=== PATIENT | male | born 1960 | race Caucasian/White ===

== ENCOUNTER 2022-03-09 11:32 | Outpatient (CLI) | payer OTHER, SELFPAY ==
[2022-03-09 21:41] LABS: Albumin* 4.5 g/dL (3.3-5.0)
[2022-03-09 21:42] LABS: Chloride* 101 mmol/L (96-114); Creatinine Urine 208.6 mg/dL; Microalbumin Creatinine Ratio 0 mg/g (0-30); Microalbumin Urine 1 mg/dL; Potassium* 4.5 mmol/L (3.6-5.1); Sodium* 139 mmol/L (135-149)
[2022-03-09 21:44] LABS: Aspartate Amino Transferase* 34 U/L (12-35); Blood Urea Nitrogen* 17 mg/dL (7-30); Carbon Dioxide* 31 mmol/L (20-32); Cholesterol* 171 mg/dL (90-199); Estimated Glomerular Filt Rate 85 ml/min; Glucose* 77 mg/dL (60-115); Total Protein* 6.9 g/dL (6.0-8.3)
[2022-03-09 21:45] LABS: Alanine Aminotransferase* 23 U/L (4-50); Alkaline Phosphatase* 52 U/L (40-150); Calcium* 9.3 mg/dL (8.4-10.6); HDL Cholesterol* 46 mg/dL (>=40); LDL Cholesterol Calculated 102 mg/dL (<100); Triglycerides* 113 mg/dL (40-149)
[2022-03-09 23:27] LABS: Free T4 Free Thyroxine* 1.36 ng/dL (0.70-1.85)
== END 2022-03-09 11:33 | disposition home or self-care (01) ==
PROVIDERS: PCP Family Medicine; Visit Provider Family Medicine
DX: E03.9 Hypothyroidism, unspecified (principal); E78.5 Hyperlipidemia, unspecified; R53.83 Other fatigue
CPT/HCPCS: 80053; 80061; 82043; 82570; 84439; 84443

== ENCOUNTER 2022-07-15 14:45 | Outpatient (CLI) | payer OTHER, SELFPAY ==
--- OUTSIDE RECORDS SUMMARY | 2022-07-16 01:55 | XMS_ITS | Continuity of Care Document ---
:1960 Author Organization [employer] Care Team Providers Name Role Phone [facility] Unavailable Unavailable Problems Problem Status Onset Date Classification Date Comments Sour ce Reported Bleeding from 03/27/2022 Arizo na nose (finding) [facility] Not up-to-date 03/27/2022 Ariz stormy with immunization Ge neral (finding) [facility] Vaccination not 03/27/2022 Dominguez ren done [facility] Medications Medication Details Route Status Patient Ordering Order Source Instructions Provider Date acetaminophen-hy Refills: 0, Active [facility] drocodone 325 Maintenance 022 Genera l mg-5 mg oral [facility] atorvastatin 20 Refills: 0, Active [place] stormy mg oral tablet Maintenance 022 Gener [facility] levothyroxine Refills: 0, Active Arizon a 137 mcg (0.137 Maintenance 022 Gener al mg) oral [facility] zolpidem 10 mg Refills: 0, Active Arizo na oral tablet Maintenance 022 [facility] Allergies, Adverse Reactions, Alerts Substance Category Reaction Severity Reaction Status Date Comments S ource type Reported No Known Drug Active [place] Medication Gener al Allergies [facility],Dominguez z stormy [facility] Consultation Notes Results Value Date Source Discharge Instructions [facility] 03/19/2022 [place] [facility] Document [address] [place] [address] [place] ISAIAH INIGUEZ :1960 (AG) Visit Date:03/19/2022 SAFE PAIN MEDICINE PRESCRIBING We care about you. Our goal is to treat your medical conditions, including pain, effectively, safely and in the right way. Pain relief treatment can be complicated. Mistakes or abuse of pain medicine can cause serious health problems and . Our emergency department patrick l only provide pain relief options that are safe and correct. For your SAFETY, we routinel y follow these rules when helping you with your pain. We look for and treat emerg encies. We use our best judgement when treating pain. These recommendations follow legal and ethical advice. You should have only ONE pr ovider and ONE pharmacy helping you with pain. We do not usually prescribe pain medication if you already receive pain medicine from another health care provider. If pain prescriptions are n eeded for pain, we will only give you a limited amount. We do not refill stolen or lost prescriptions f or pain medication. We do not prescribe long-ac ting pain medicines such as: OxyContin, MSContin, Fentanyl (Duragesic), Methadone, Opana ER, Exalgo, and others. We do not provide missed doses of Methadone. We do not usually give shots for flare-ups of c hronic pain. Health care laws, including HIPAA, allow us to ask for all of your medical records. These laws allow us to share information with other health providers who are treating you. We may ask you to show a laith ID when you receive a prescription for pain medicines. In [place], we use the [facility] Prescription Drug Monitoring Program called [employer] In [place] and [place], we use the Prescription Monitoring Program that has oversight by the [place] and [facility] boards of pharmacy. [employer] [facility] computer systems track opioid pain medications and other controlled substance prescriptions. If you need help with substa nce abuse or addiction, please call [phone] ([phone] for confidential referral and treatment. Sponsored by: [employer] [facility] [place] [facility] Safe Practice, Safe Care [facility] Emergency Department Patient Discharge Instruct ions If your symptoms continue o r worsen, return to the emergency department or contact your physician. If you have questions about your discharge instructions, call the phone number above. Providers Attending Physician - Paramjit Abreu DO Provider Role Jonny Bajwa PAC ED Provider Reason for Visit Nose bleed Discharge Diagnosis Epistaxis, recurrent Discharge Vitals T: 36.5 ?C (Temporal Artery) HR: 81 RR: 16 BP: 145/76 SpO2: 97% Oxygen Method: Room air HT: 177.8 cm WT: 195 lbs WT: 88.435 kg BMI: 27.97 BSA: 2.09 These instructions are inte nded to provide general information and guidelines to follow at home to properly care for your particular medical problem. The following diagnostic tests and/or procedures were performed during your stay. Tests Performed Most Recent Lab Results Follow-up Instructions: All referrals for follow up medical care may require approval by your insurance carrier. Any provider contact information (below) is provided to assist you in getting the follow up we recommend. Moses saucedo, it's important that you f irst check with your insurance provider to assure that the provider is in yourinsurance provider to assure that the provider is in your network and such a visit will be covered. Some plans may require a Primary Care doctor to provide a referral for specialist appointments. You May Need to Schedule the Following Appointme nts Follow Up with Follow up with primary care prov ider When Within 1 to 3 days We encourage you to sign up for My Portal, where you can easily access your medical records and test results from all [facility]. Please sign up in one of the following ways: 1. Email invitation. You ma y have a message in your inbox. Please click the link provided to create an account. OR 2. Request an invitation at your next clinic or hospital visit. Please ask a staff member and they will be happy to assist you. Medications What When Instructions Next Dose Unchanged acetaminophen-HYD ROcodone (acetaminophen-hydrocodone 325 mg-5 mg oral tablet) Unchanged atorvastatin (atorvastatin 20 mg oral tablet) Unchanged levothyroxine (levothyroxine 137 mcg (0.137 mg) oral tablet) Unchanged zolpidem (zolpidem 10 mg oral tablet) Discharge Orders Discharge Orders: Discharge Now, Home or self care Education Materials Nosebleed, Adult A nosebleed is when blood c omes out of the nose. Nosebleeds are common. Usually, they are not a sign of a serious condition. Nosebleeds can happen if a blood vessel in your nose starts to bleed or if the lining of your nose (mucous membrane) cracks. They are commonly caused by: ? Allergies. ? Colds. ? Picking your nose. ? Blowing your nose too hard. ? An injury from sticking an object into your nos e or getting hit in the nose. ? Dry or cold air. Less common causes of nosebleeds include: ? Toxic fumes. ? Something abnormal in the n ose or in the air-filled spaces in the bones of the face (sinuses). ? Growths in the nose, such as polyps. ? Blood thinners or conditions that cause blood t o clot slowly. ? Certain illnesses or procedures that irritate o r dry out the nasal passages. Follow these instructions at home: When you have a nosebleed: ? Sit down and tilt your head slightly forward. ? Use a clean towel or tissue to pinch your nostrils under the bony part of your nose. After 5 minutes, let go of your nose and see if bleeding starts again. Do not release pressure before that time. If there is still bleeding, rep eat the pinching and holding for 5 minutes or until the bleeding stops. ? Do not place tissues or gauze in the nose to st op the bleeding. ? Avoid lying down and avoid tilting your head backward. That may make blood collect in the throat and cause gagging or coughing. ? Use a nasal spray decongest ant to help with a nosebleed as told by your health care provider. After a nosebleed: ? Avoid blowing your nose or sniffing for a numbe r of hours. ? Avoid straining, lifting, o r bending at the waist for several days. You may go back to other normal activities as you are able. ? If you are taking aspirin o r blood thinners and you have nosebleeds, talk to your health care provider. These medicines make bleeding more likely. Ask your health care provid er if you should stop taking the medicines or if you should adjust the dose. Do not stop taking medicine s that your health care provider has recommended unless he or she tells you to stop taking them. ? If your nosebleed was cause d by dry mucous membranes, use [id number] saline nasal spray or gel and a humidifier as told by your health care provider. This will keep the mucous membranes moist and allow them to heal. If you need to use one of t hese products: Choose one that is water-soluble. Use only as much as you need and use it only as often as needed. Do not lie down right after you use it. ? If you get nosebleeds often , talk with your health care provider about medical treatments. Options may include: Nasal cautery. This treatme nt stops and prevents nosebleeds by using a chemical swab or electrical device to lightly burn tiny blood vessels inside the nose. Nasal packing. A gauze or o ther material is placed in the nose to keep constant pressure on the bleeding area. Contact a health care provider if you: ? Have a fever. ? Get nosebleeds often or more often than usual. ? Bruise very easily. ? Have a nosebleed from having something stuck in your nose. ? Have bleeding in your mouth. ? Vomit or cough up brown material. ? Have a nosebleed after you start a new medicine . Get help right away if: ? You have a nosebleed after a fall or a head inj ury. ? Your nosebleed does not go away after 20 minute s. ? You feel dizzy or weak. ? You have unusual bleeding from other parts of y our body. ? You have unusual bruising on other parts of you r body. ? You become sweaty. ? You vomit blood. Summary ? A nosebleed is when blood c omes out of the nose. Common causes include allergies, an injury to the nose, or cold or dry air. ? Initial treatment includes applying pressure fo r 5 minutes. ? Moisturizing the nose with saline nasal spray or gel after a nosebleed may help prevent future bleeding. ? Get help right away if your nosebleed does not go away after 20 minutes. This information is not int ended to replace advice given to you by your health care provider. Make sure you discuss any questions you have with your health care provider. Document Revised: 0 Document Reviewed: 02/14/2020 [employer] Patient Education ? 2021 [employer]. I understand that [facility] is not responsible for any personal belongings/effects or valuables that have not been identified on the valuables and belongings list. Any personal effects brought int o the facility and not recor ded on the valuables and belongings form are the responsibility of the patient/family/significant other. I have received the indicated patient education materials/instruction s and medication list and have verbalized unders tanding. Patient Name: ISAIAH INIGUEZ Patient/Responsible Adult S ignature: Date/Time: Provider Signature: Date/Time: ED Physician Notes 03/19/2022 Mary Lou paez Patient: ISAIAH INIGUEZ () [facility] Age: 61 years Sex: F : 1960 [place] Associated Diagnoses: None Author: Jonny Bajwa Basic Information Time seen: Provider Initial Contact Time 03/19/2022 14:02. History source: Patient. Arrival mode: Private vehicle. History limitation: None. Additional information: Chief Complaint (ST) Chief Complaint ED: nose bleed since this anel wild 03/19/22 14:05, Subjective Nursing Assessment: bilateral nose b leed 03/19/22 14:05 . History of Present Illness Patient presents for noseble ed that is been present throughout the day. Patient went to primary care provider earlier today where cautery was done. Upon arrival patient's states that blood is n ow slightly trickling out bu t he does not have any packing in the nose and is not having to hold pressure. Is not on any anticoagulants, does have a history of epistaxis that occurs around this time saúl ry year. Has had to have cautery done numerous t imes. Review of Systems Constitutional symptoms: Negative except as docu mented in HPI. Skin symptoms: Negative except as documented in HPI. Eye symptoms: Negative except as documented in H PI. ENMT symptoms: Nose: Bleeding. Respiratory symptoms: Negative except as documen maria del carmen in HPI. Cardiovascular symptoms: Negative except as docu mented in HPI. Gastrointestinal symptoms: Negative except as do cumented in HPI. Genitourinary symptoms: Negative except as docum ented in HPI. Musculoskeletal symptoms: Negative except as doc umented in HPI. Neurologic symptoms: Negative except as document ed in HPI. Additional review of system s information: All other systems reviewed and otherwise negative. Health Status Allergies: Allergic Reactions (All) No Known Medication Allergies. Medications: Include Documented Meds (Selected) Documented Medications Documented acetaminophen-hydrocodone 325 mg-5 mg oral table t: 0 Refill(s) atorvastatin 20 mg oral tablet: 0 Refill(s) levothyroxine 137 mcg (0.137 mg) oral tablet: 0 Refill(s) zolpidem 10 mg oral tablet: 0 Refill(s). Past Medical/ Family/ Social History Surgical history: No active procedure history items have been jonathan cted or recorded.. Family history: No family history items have been selected or re corded.. Social history: Social and Psychosocial Habits Alcohol 03/19/2022 Use: Current Frequency: 1-2 times per month Home/Environment 03/19/2022 Hinduism restrictions/concerns: None Living situation: Home/Independent Substance Abuse 03/19/2022 Use: Denies Tobacco 03/19/2022 Tobacco Use: Never (less than 100 in l . Physical Examination Vital Signs Vital-Signs 03/19/2022 14:05 MST Oxygen Method Room air SPO2 97 % Normal Heart Rate 81 bpm Normal NIBP Systolic 145 mm Hg H NIBP Diastolic 76 mm Hg Normal Resp Rate (Monitor) 16 Breaths/Min Normal Temperature Temporal Artery 36.5 deg C Normal Pain Intensity 0 Pain Scale Used Numeric Rating Scale . Measurements 03/19/2022 14:05 MST BSA-pt care 2.09 Duncan Body Weight 68.5 kg Weight Method Stated Drug Calc Weight (kg) 88.435 kg BMI 27.97 kg/m2 Height 177.8 cm Height In 70 Inch Weight lb 195 lbs . SPO2 03/19/2022 14:05 MST SPO2 97 % Normal . General: Alert, no acute distress. Skin: Warm, pink, intact, moist, no pallor, no r mariya. Head: Normocephalic, atraumatic. Eye: Extraocular movements are intact, normal co njunctiva, vision unchanged. Ears, nose, mouth and throat : Oral mucosa moist, no pharyngeal erythema or exudate, Nose: Bilateral nares observed with blood clots and no active bleeding. No tenderness surrounding the nose or sinuses. Cardiovascular: Normal peripheral perfusion, No edema. Respiratory: Respirations are non-labored, Symme trical chest wall expansion. Back: Nontender, Normal range of motion. Musculoskeletal: Normal ROM, normal strength, no swelling. Chest wall Gastrointestinal: Soft, Nont deb, Non distended, Normal bowel sounds, No organomegaly. Neurological: Alert and orie nted to person, place, time, and situation, No focal neurological deficit observed, normal motor observed, normal speech observed, normal coordination observed. Lymphatics Psychiatric: Cooperative, appropriate mood and a ffect, normal judgment. Medical Decision Making Differential Diagnosis: Anterior epistaxis. Notes: Discussed numerous op tion with patient on how to proceed as he had mild drooping of bilateral naris upon arrival. After discussion we decided that it would be appropriate for him to blow his nose and clear the clots which s he did, immediately causing moderate bleeding from bilateral nares. Nasal packing was placed with Afrin bilaterally, strings were taped to both cheeks. Patient is not on bloo d thinners at this time, obs erved for 10 minutes after packing with no additional bleeding. Informed patient that he can remove the packing this evening or in the morning, but to not let it sit for long er than 24 hours. We discuss ed what to do should he continue bleeding which is internal packing and to use Afrin 1 more time. Minimal blood loss at this time, do not see need for doing blood work to check for anemia.. Impression and Plan Epistaxis, recurrent ([id number] R04.0, Discharge, Medical) Plan Condition: Improved, Stable. Disposition: Medically cleared, Discharg ed: Time 03/19/2022 15:05:00, to home. Follow up with: Primary Care Physician, In: as jenaro rivas. Counseled: Patient, Ursula wild diagnosis, Regarding diagnostic results, Regarding treatment plan, Patient indicated understanding of instructions. Electronically Signed By: Jonny Bajwa PAC On 03/19/22 15:05 Co Signature By: Paramjit Abreu DO On 11/22/22 23:47 Modify Signature By: ED Procedure and Supply ED Procedure and Supply Caitlyn ges Entered On: 03/24/2022 11:00 PST 03/19/2022 [facility] Charges - Text Performed On: 03/19/2022 13:25 [facility] - Charges Other ED Procedures v2 : CAUTERY PROCEDURE/CONTR OL BLEED Crystal Mckeon - 03/24/2022 10:59 PST Vital Signs Vital Sign Value Date Comments Source Temperature Rectal 36.7 03/19/2022 [facility] Systolic (mm Hg) 135 03/19/2022 [facility] Diastolic (mm Hg) 65 03/19/2022 [facility] Respiratory Rate 18 Breaths/Min 03/19/2022 [facility] SPO2 99 03/19/2022 [facility] Heart Rate (bpm) 78 03/19/2022 [facility] Height (cm) 177.8 03/19/2022 [facility] Drug Calc Weight (kg) 88.435 03/19/2022 [facility] BMI 27.97 03/19/2022 [facility] Temperature (c) 36.5 03/19/2022 [facility] Systolic (mm Hg) 145 03/19/2022 [facility] Diastolic (mm Hg) 76 03/19/2022 [facility] Heart Rate (bpm) 81 03/19/2022 [facility] Respiratory Rate 16 Breaths/Min 03/19/2022 [facility] SPO2 97 03/19/2022 [facility] Encounters Location Location Encounter Encounter Reason Attending ADM DC Stat us Source Details Type Number For Provider Date Date Visit [facility] [id number] Paramjit 03/19 03/19 A oliverio Perezack /2021 [facility] Procedures Procedure Code Date Perfomer Comments Source CONTROL OF NOSEBLEED 68512 03/19/2022 [facility] NON-COVERED ITEM OR SERV [id number] 03/19/2022 [facility] Social History Social History Date Source Social History TypeResponse 03/19/2022 [facility] Smoking Status Never (less than 100 in lifetime) entered on: 03/19/22 Sex Male Assessment and Plan Result Assessment and Plan Date Source Assessment and Plan No data available for this 03/19/2022 [facility]
== END 2022-07-15 14:46 | disposition home or self-care (01) ==
LOC: NFLDREF 07-16 01:53
PROVIDERS: PCP Family Medicine; Referring Provider Family Medicine; Visit Provider Family Medicine
DX: E03.9 Hypothyroidism, unspecified (principal); R53.83 Other fatigue
CPT/HCPCS: 84439; 84443

== ENCOUNTER 2022-11-03 14:11 | Outpatient (CLI) | payer OTHER, SELFPAY ==
--- OUTSIDE RECORDS SUMMARY | 2022-11-03 14:13 | XMS_ITS | Continuity of Care Document ---
Author Name [employer] Care Team Providers Care Stockroom Inventory Clerk Name Role Phone [employer] Unavailable Unavailable Problems Problem Status Onset Date Classification Date Reported Comments Source Bleeding from nose (finding) 03/27/2022 [facility] Not up-to-date with immunization (finding) 03/27/2022 [facility] Vaccination not done 03/27/2022 [facility] Medications Medication Details Route Status Patient Instructions Ordering Provider Order Date Source acetaminophen-hy drocodone 325 mg-5 mg oral tablet Refills: 0, Maintenance Active [facility] atorvastatin 20 mg oral tablet Refills: 0, Maintenance Active [facility] levothyroxine 137 mcg (0.137 mg) oral tablet Refills: 0, Maintenance Active [facility] zolpidem 10 mg oral tablet Refills: 0, Maintenance Active [facility] Allergies, Adverse Reactions, Alerts Substance Category Reaction Severity Reaction type Status Date Reported Comments Source No Known Medication Allergies Drug Active [facility] Consultation Notes Results Value Date Source Discharge Instructions Document [facility] [address], [place] [id number] ISAIAH INIGUEZ :1960 () Visit Date:03/19/2022 [facility]IC[employer] PRESCRIBING We care about you. Our goal is to treat your medical conditions, including pain, effectively, safely and in the right way. Pain relief treatment can be complicated. Mistakes or abuse of pain medicine can cause serious health problems and . Our emergency department will only provide pain relief options that are safe and correct. For your SAFETY, we routinely follow these rules when helping you with your pain. We look for and treat emergencies. We use our best judgement when treating pain. These recommendations follow legal and ethical advice. You should have only ONE provider and ONE pharmacy helping you with pain. We do not usually prescribe pain medication if you already receive pain medicine from another health care provider. If pain prescriptions are needed for pain, we will only give you a limited amount. We do not refill stolen or lost prescriptions for pain medication. We do not prescribe long-acting pain medicines such as: OxyContin, MSContin, Fentanyl (Duragesic), Methadone, Opana ER, Exalgo, and others. We do not provide missed doses of Methadone. We do not usually give shots for flare-ups of chronic pain. Health care laws, including HIPAA, allow us to ask for all of your medical records. These laws allow us to share information with other health providers who are treating you. We may ask you to show a photo ID when you receive a prescription for pain medicines. In [place], we use the [place] Prescription Drug Monitoring Program called [employer]. In [place] and [place], we use the Prescription Monitoring Program that has oversight by the [place] and [facility] boards of pharmacy. These statewide computer systems track opioid pain medications and other controlled substance prescriptions. If you need help with substance abuse or addiction, please call [phone] ([phone]) for confidential referral and treatment. Sponsored by: [employer] [facility] MANAGER [place] [employer] [facility] [employer] Safe Practice, Safe Care [facility] Emergency Department Patient Discharge Instructions If your symptoms continue or worsen, return to the emergency department or [...] BMI: 27.97 BSA: 2.09 These instructions are intended to provide general information and guidelines to [...] in getting the follow up we recommend. However, it's important that you first check with your insurance provider to assure that the provider is in yourinsurance provider to assure that the provider is in your network and such a visit will be covered. Some plans may require a Primary Care doctor to provide a referral for specialist appointments. You May Need to Schedule the Following Appointments Follow Up with Follow up with primary care provider When Within 1 to 3 days We encourage you to sign up for My Portal, where you can easily access your medical records and test results from all [facility]. Please sign up in one of the following ways: 1. Email invitation. You may have a message in your inbox. Please click the link provided to create an account. OR 2. Request an invitation at your next clinic or hospital visit. Please ask a staff member and they will be happy to assist you. Medications What When Instructions Next Dose Unchanged acetaminophen-HYDROcodone (acetaminophen-hydrocodone 325 mg-5 mg oral tablet) Unchanged atorvastatin (atorvastatin 20 mg oral tablet) Unchanged levothyroxine (levothyroxine 137 mcg (0.137 mg) oral tablet) Unchanged zolpidem (zolpidem 10 mg oral tablet) Discharge Orders Discharge Orders: Discharge Now, Home or self care Education Materials Nosebleed, Adult A nosebleed is when blood comes out of the nose. Nosebleeds are common. Usually, they are not a sign of a serious condition. Nosebleeds can happen if a blood vessel in your nose starts to bleed or if the lining of your nose (mucous membrane) cracks. They are commonly caused by: Allergies. Colds. Picking your nose. Blowing your nose too hard. An injury from sticking an object into your nose or getting hit in the nose. Dry or cold air. Less common causes of nosebleeds include: Toxic fumes. Something abnormal in the nose or in the air-filled spaces in the bones of the face (sinuses). Growths in the nose, such as polyps. Blood thinners or conditions that cause blood to clot slowly. Certain illnesses or procedures that irritate or dry out the nasal passages. Follow these instructions at home: When you have a nosebleed: Sit down and tilt your head slightly forward. Use a clean towel or tissue to pinch your nostrils under the bony part of your nose. After 5 minutes, let go of your nose and see if bleeding starts again. Do not release pressure before that time. If there is still bleeding, repeat the pinching and holding for 5 minutes or until the bleeding stops. Do not place tissues or gauze in the nose to stop the bleeding. Avoid lying down and avoid tilting your head backward. That may make blood collect in the throat and cause gagging or coughing. Use a nasal spray decongestant to help with a nosebleed as told by your health care provider. After a nosebleed: Avoid blowing your nose or sniffing for a number of hours. Avoid straining, lifting, or bending at the waist for several days. You may go back to other normal activities as you are able. If you are taking aspirin or blood thinners and you have nosebleeds, talk to your health care provider. These medicines make bleeding more likely. Ask your health care provider if you should stop taking the medicines or if you should adjust the dose. Do not stop taking medicines that your health care provider has recommended unless he or she tells you to stop taking them. If your nosebleed was caused by dry mucous membranes, use [id number] saline nasal spray or gel and a humidifier as told by your health care provider. This will keep the mucous membranes moist and allow them to heal. If you need to use one of these products: Choose one that is water-soluble. Use only as much as you need and use it only as often as needed. Do not lie down right after you use it. If you get nosebleeds often, talk with your health care provider about medical treatments. Options may include: Nasal cautery. This treatment stops and prevents nosebleeds by using a chemical swab or electrical device to lightly burn tiny blood vessels inside the nose. Nasal packing. A gauze or other material is placed in the nose to keep constant pressure on the bleeding area. Contact a health care provider if you: Have a fever. Get nosebleeds often or more often than usual. Bruise very easily. Have a nosebleed from having something stuck in your nose. Have bleeding in your mouth. Vomit or cough up brown material. Have a nosebleed after you start a new medicine. Get help right away if: You have a nosebleed after a fall or a head injury. Your nosebleed does not go away after 20 minutes. You feel dizzy or weak. You have unusual bleeding from other parts of your body. You have unusual bruising on other parts of your body. You become sweaty. You vomit blood. Summary A nosebleed is when blood comes out of the nose. Common causes include allergies, an injury to the nose, or cold or dry air. Initial treatment includes applying pressure for 5 minutes. Moisturizing the nose with saline nasal spray or gel after a nosebleed may help prevent future bleeding. Get help right away if your nosebleed does not go away after 20 minutes. This information is not intended to replace advice given to you by your health care provider. Make sure you discuss any questions you have with your health care provider. Document Revised: 02/14/2020 Document Reviewed: 02/14/2020 [employer] Patient Education ? 2021 [employer] I understand that [facility] is not responsible for any personal belongings/effects or valuables that have not been identified on the valuables and belongings list. Any personal effects brought into the facility and not recorded on the valuables and belongings form are the responsibility of the patient/family/significant other. I have received the indicated patient education materials/instructions and medication list and have verbalized understanding. Patient Name: ISAIAH INIGUEZ Patient/Responsible Adult Signature: Date/Time: Provider Signature: Date/Time: 03/19/2022 [facility] ED Physician Notes Patient: ISAIAH INIGUEZ (DAVID) Age: 61 years Sex: F : 1960 Associated Diagnoses: None Author: Jonny Bajwa PAC Basic Information Time seen: Provider Initial Contact Time 03/19/2022 14:02. History source: Patient. Arrival mode: Private vehicle. History limitation: None. Additional information: Chief Complaint (ST) Chief Complaint ED: nose bleed since this morning 03/19/22 14:05, Subjective Nursing Assessment: bilateral nose bleed 03/19/22 14:05 . History of Present Illness Patient presents for nosebleed that is been present throughout the day. Patient went to primary care provider earlier today where cautery was done. Upon arrival patient's states that blood is now slightly trickling out but he does not have any packing in the nose and is not having to hold pressure. Is not on any anticoagulants, does have a history of epistaxis that occurs around this time every year. Has had to have cautery done numerous times. Review of Systems Constitutional symptoms: Negative except as documented in HPI. Skin symptoms: Negative except as documented in HPI. Eye symptoms: Negative except as documented in HPI. ENMT symptoms: Nose: Bleeding. Respiratory symptoms: Negative except as documented in HPI. Cardiovascular symptoms: Negative except as documented in HPI. Gastrointestinal symptoms: Negative except as documented in HPI. Genitourinary symptoms: Negative except as documented in HPI. Musculoskeletal symptoms: Negative except as documented in HPI. Neurologic symptoms: Negative except as documented in HPI. Additional review of systems information: All other systems reviewed and otherwise negative. Health Status Allergies: Allergic Reactions (All) No Known Medication Allergies. Medications: Include Documented Meds (Selected) Documented Medications Documented acetaminophen-hydrocodone 325 mg-5 mg oral tablet: 0 Refill(s) atorvastatin 20 mg oral tablet: 0 Refill(s) levothyroxine 137 mcg (0.137 mg) oral tablet: 0 Refill(s) zolpidem 10 mg oral tablet: 0 Refill(s). Past Medical/ Family/ Social History Surgical history: No active procedure history items have been selected or recorded.. Family history: No family history items have been selected or recorded.. Social history: Social and Psychosocial Habits Alcohol 03/19/2022 Use: Current Frequency: 1-2 times per month Home/Environment 03/19/2022 Gnosticism restrictions/concerns: None Living situation: Home/Independent Substance Abuse [...] Measurements 03/19/2022 14:05 MST BSA-pt care 2.09 [place] Body Weight 68.5 kg Weight Method Stated Drug Calc Weight (kg) 88.435 kg BMI 27.97 kg/m2 Height 177.8 cm Height In 70 Inch Weight lb 195 lbs . SPO2 03/19/2022 14:05 MST SPO2 97 % Normal . General: Alert, no acute distress. Skin: Warm, pink, intact, moist, no pallor, no rash. Head: Normocephalic, atraumatic. Eye: Extraocular movements are intact, normal conjunctiva, vision unchanged. Ears, nose, mouth and throat: Oral mucosa moist, no pharyngeal erythema or exudate, Nose: Bilateral nares observed with blood clots and no active bleeding. No tenderness surrounding the nose or sinuses. Cardiovascular: Normal peripheral perfusion, No edema. Respiratory: Respirations are non-labored, Symmetrical chest wall expansion. Back: Nontender, Normal range of motion. Musculoskeletal: Normal ROM, normal strength, no swelling. Chest wall Gastrointestinal: Soft, Nontender, Non distended, Normal bowel sounds, No organomegaly. Neurological: Alert and oriented to person, place, time, and situation, No focal neurological deficit observed, normal motor observed, normal speech observed, normal coordination observed. Lymphatics Psychiatric: Cooperative, appropriate mood and affect, normal judgment. Medical Decision Making Differential Diagnosis: Anterior epistaxis. Notes: Discussed numerous option with patient on how to proceed as he had mild drooping of bilateral naris upon arrival. After discussion we decided that it would be appropriate for him to blow his nose and clear the clots which she did, immediately causing moderate bleeding from bilateral nares. Nasal packing was placed with Afrin bilaterally, strings were taped to both cheeks. Patient is not on blood thinners at this time, observed for 10 minutes after packing with no additional bleeding. Informed patient that he can remove the packing this evening or in the morning, but to not let it sit for longer than 24 hours. We discussed what to do should he continue bleeding which is internal packing and to use Afrin 1 more time. Minimal blood loss at this time, do not see need for doing blood work to check for anemia.. Impression and Plan Epistaxis, recurrent ([id number] R04.0, Discharge, Medical) Plan Condition: Improved, Stable. Disposition: Medically cleared, Discharged: Time 03/19/2022 15:05:00, to home. Follow up with: Primary Care Physician, In: as needed. Counseled: Patient, Regarding diagnosis, Regarding diagnostic results, Regarding treatment plan, Patient indicated understanding of instructions. Electronically Signed By: Jonny Bajwa PAC On 03/19/22 15:05 Co Signature By: Paramjit Abreu DO On 03/23/22 23:47 Modify Signature By: 03/19/2022 [facility] ED Procedure and Supply Charges - Text ED Procedure and Supply Charges Entered On: 03/24/2022 11:00 PST Performed On: 03/19/2022 13:25 MST by Crystal Mckeon ED Other Proc. - Charges Other ED Procedures v2 : CAUTERY PROCEDURE/CONTROL BLEED Crystal Mckeon - 03/24/2022 10:59 PST 03/19/2022 [facility] Vital Signs Vital Sign Value Date Comments Source Temperature Rectal 36.7 03/19/2022 [facility] Systolic (mm Hg) 135 03/19/2022 [facility] Diastolic (mm Hg) 65 03/19/2022 [facility] Respiratory Rate 18 Breaths/Min 03/19/2022 [facility] SPO2 99 03/19/2022 [facility] Heart Rate (bpm) 78 03/19/2022 [facility] Height (cm) 177.8 03/19/2022 [facility] Calc Weight (kg) 88.435 03/19/2022 [facility] BMI 27.97 03/19/2022 [facility] Temperature (c) 36.5 03/19/2022 [facility] Systolic (mm Hg) 145 03/19/2022 [facility] Diastolic (mm Hg) 76 03/19/2022 [facility] Heart Rate (bpm) 81 03/19/2022 [facility] Respiratory Rate 16 Breaths/Min 03/19/2022 [facility] SPO2 97 03/19/2022 [facility] Encounters Location Location Details Encounter Type Encounter Number Reason For Visit Attending Provider ADM Date DC Date Status Source [facility] Emergency [id number] Paramjit Abreu 03/19 [facility] Procedures Procedure Code Date Perfomer Comments Source CONTROL OF NOSEBLEED 19489 03/19/2022 [facility] NON-COVERED ITEM OR SERV A9270 03/19/2022 [facility] Social History Social History Date Source Social History TypeResponse Smoking Status Never (less than 100 in lifetime) entered on: 03/19/[address] [facility] Assessment and Plan Result Assessment and Plan Date Source Assessment and Plan No data available fo r this section 03/19/2022 [facility]
--- NOTE | 2022-11-03 14:30 | MR_ITS ---
[facility] [address] [address] Phone:?[phone] Fax:?[phone] Referring Physician Information: Lorna London D.O. [address] [facility] [address] Phone:?[phone] Fax:?[phone] Patient:Keysha Correia D.O.B:?1960 Sex:?Male Phone:?[phone] [facility] MRN:?[id number] Exam Date:?11/03/2022 EXAM: MRI of the LEFT SHOULDER, without contrast CLINICAL: Left shoulder pain. Evaluate for degenerative joint disease versus rotator cuff pathology. COMPARISONS: Prior MRI examinations including 05/22/2020. TECHNICAL: Multiplanar multisequence MRI of the left shoulder was obtained. SEDATION: None. CONTRAST: None. FINDINGS: Rotator cuff: Supraspinatus/Infraspinatus: There is moderate tendinosis of the distal supraspinatus tendon which appears increased compared to prior examination. Mild focal partial interstitial/articular surface tearing involving the junction of the posterior distal supraspinatus and anterior infraspinatus tendons on coronal series 4 image 13 is new compared to prior exam. Mild partial interstitial tearing involving the remainder of the distal supraspinatus and infraspinatus tendons appears similar to prior exam. Mild tendinosis of the infraspinatus tendon similar to prior exam. No significant fatty atrophy of the muscle bellies. Teres minor: No tendinosis, tear or atrophy. Subscapularis: Moderate tendinosis of the distal tendon similar to prior examination. Mild partial interstitial tearing of the superior tendon appears similar to prior exam with mild partial interstitial tearing of the inferior distal tendon which appears increased compared to prior exam. No significant fatty atrophy of the muscle belly. Bursae: Subacromial-subdeltoid: Minimal bursal edema. Subcoracoid: No significant bursal fluid. Coracoacromial arch: Acromion morphology: Type II. No os acromiale. Acromiohumeral space: Within normal limits. Coracohumeral space: Within normal limits. Biceps tendon, long head: Mild tendinosis of the intra-articular biceps tendon similar to prior examination. No tendon tear or displacement. Glenohumeral joint: Physiologic volume of joint fluid. Articular cartilage: Suspect high-grade chondral loss involving the medial and superomedial humeral head, increased compared to prior exam. Relatively mild chondral thinning of the glenoid. Capsule: No convincing evidence of capsular thickening or injury. Labrum: There is tearing of the superior labrum similar to prior exam. Degenerative changes involving the remainder of the labrum also similar to prior exam. No perilabral cyst identified. Bones: No suspicious marrow signal alteration, fracture or dislocation. Acromioclavicular joint: Changes of arthrosis appear similar to prior examination. No new AC joint injury/widening. IMPRESSION: 1. Moderate tendinosis of the distal supraspinatus tendon which appears increased compared to prior exam. Mild partial tearing of the insertional fibers of the junction of the posterior distal supraspinatus and anterior distal infraspinatus tendons is new compared to prior examination. Mild partial interstitial tearing of the remainder of the supraspinatus and infraspinatus tendons otherwise appear similar to prior exam. No new full-thickness or retracted rotator cuff tendon tear. 2. Moderate tendinosis of the subscapularis tendon similar to prior exam. There is mild partial interstitial tearing of the superior subscapularis tendon similar to prior exam. Mild partial interstitial tearing of the inferior distal subscapularis tendon is new compared to prior exam. 3. Mild tendinosis of the intra-articular long head biceps tendon similar to prior exam. 4. Tearing of the superior labrum with degenerative changes involving the remainder of the glenoid labrum similar to prior exam. 5. Suspect high-grade chondral loss involving the medial and superomedial humeral head, increased compared to prior exam. No evidence of significant osseous changes of glenohumeral osteoarthritis at this time. 6. 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 BETO Electronically signed on 11/04/2022 7:51:00 AM by Colin Vargas D.O.
== END 2022-11-03 14:12 | disposition home or self-care (01) ==
PROVIDERS: PCP Family Medicine; Visit Provider Family Medicine
DX: M25.512 Pain in left shoulder (principal); M75.102 Unspecified rotator cuff tear or rupture of left shoulder, not specified as traumatic; S43.432A Superior glenoid labrum lesion of left shoulder, initial encounter
CPT/HCPCS: 73221

== ENCOUNTER 2022-12-25 00:26 | Emergency (ER) | payer OTHER, SELFPAY ==
[2022-12-25 00:33] VITALS: BP 182/109; PULSE 58; RESP 18; TEMP 36.1; O2SAT 96
--- NOTE | 2022-12-25 00:47 | ED_ITS ---
HPI - General Adult General Chief complaint: Hypertension Stated complaint: slow heart rate Time Seen by Provider: 12/25/22 00:29 History of Present Illness HPI narrative: Patient is a 62-year-old gentleman who was recently at the orthopedist's office in was noted to have a high blood pressure. Patient checked his blood pressure tonight and found to be elevated in the 180/90 range. He also is concerned his pulse was in the 50s. Patient is an avid cyclist and rides his bone bike [employer]. He has had no chest pain shortness a breath orthopnea no PND no nausea no vomiting. He otherwise feels well. He often times gets his heart rate up to 150 without any difficulty well biking. EKG upon arrival shows sinus bradycardia with no other acute abnormalities. Patient is otherwise completely asymptomatic. Related Data Previous Rx's Medication Instructions Recorded atorvastatin 20 mg tablet 20 mg PO QDAY #90 tabs 03/08/22 hydrocodone 5 mg-acetaminophen 325 See Rx Instructions PO .COMPLEX 10/04/22 mg tablet PRN pain #90 tabs levothyroxine 112 mcg tablet 112 mcg PO QDAY #30 tabs 10/04/22 zolpidem 10 mg tablet 5 - 10 mg (0.5 - 1 x 10 mg) PO QHS 10/27/22 #90 tabs Allergies Allergy/AdvReac Type Severity Reaction Status Date / Time No Known Allergies Allergy Unknown Verified 12/14/22 09:55 Review of Systems Status of ROS: Reports: 10 or more systems reviewed and unremarkable except as noted in History and below [facility] Medical History Encounter for chronic pain management ?G89.29 - Other chronic pain (ICD-10) Encounter for annual physical exam ?Z00.00 - Encounter for general adult medical examination without abnormal findings (ICD-10) Disorder of rotator cuff (11/30/12) ?M67.919 - Unspecified disorder of synovium and tendon, unspecified shoulder (ICD-10) Chronic pain disorder ?G89.4 - Chronic pain syndrome (ICD-10) Surgical History History of arthroscopy of right shoulder (03/13/13) ?Z98.890 - Other specified postprocedural states (ICD-10) History of vasectomy ?Z98.52 - Vasectomy status (ICD-10) History of right inguinal hernia repair (06/08/10) ?Z98.890 - Other specified postprocedural states (ICD-10) ?Z87.19 - Personal history of other diseases of the digestive system (ICD-10) History of laparoscopic cholecystectomy ?Z90.49 - Acquired absence of other specified parts of digestive tract (ICD- 10) History of colonoscopy with polypectomy (09/20/11) ?Z98.890 - Other specified postprocedural states (ICD-10) ?Z86.010 - Personal history of colonic polyps (ICD-10) Family History Mother Stroke Father Heart disease Social History (Updated 03/01/22 @ 22:19 by Ashley Hunter) Narrative: Non-smoker Smoking Status: Never smoker Little interest or pleasure in doing things: not at all Feeling down, depressed, or hopeless: not at all Exam Narrative: Exam Narrative: EXAM GENERAL: Patient appears comfortable and well. EYES: No scleral icterus. LYMPH: No supraclavicular or cervical lymphadenopathy. SKIN: Visible skin seen during exam normal or with benign process only. EXT: No dependent lower extremity pedal edema. HEART: Regular rate and rhythm with no murmurs, rubs, or gallops. LUNGS: Clear to auscultation bilaterally with no crackles or wheezes. ABD: Soft, non tender, non distended. PSYCH: Good eye contact, speech is not pressured. Const: Vital Signs, click to edit/add: Vital Signs - 24 hr 12/25/22 00:33 Temperature 97.0 F L Pulse Rate [Left P ulse Oximeter] 58 L Respiratory Rate 18 Blood Pressure [Ri ght Upper Arm] 182/109 H Pulse Oximetry 96 Oxygen Delivery Me thod Room Air Course Course Hospital Course: Patient seen and examined. Vital Signs Vital signs: Initial Vital Signs Temperature 97.0 F L 12/25/22 00:33 Temperature Source Temporal Artery Scan 12/25/22 00:33 Pulse Rate 58 L 12/25/22 00:33 Pulse Rhythm Regular 12/25/22 00:33 Respiratory Rate 18 12/25/22 00:33 Blood Pressure 182/109 H 12/25/22 00:33 Blood Pressure Mean 133 H 12/25/22 00:33 Blood Pressure Position Semi-Fowlers 12/25/22 00:33 Pulse Oximetry 96 12/25/22 00:33 Oxygen Delivery Method Room Air 12/25/22 00:33 Vital Signs Temperature 97.0 F L 12/25/22 00:33 Pulse Rate 58 L 12/25/22 00:33 Respiratory Rate 18 12/25/22 00:33 Blood Pressure 182/109 H 12/25/22 00:33 Pulse Oximetry 96 12/25/22 00:33 Oxygen Delivery Method Room Air 12/25/22 00:33 Temperature 97.0 F L 12/25/22 00:33 Pulse Rate 58 L 12/25/22 00:33 Respiratory Rate 18 12/25/22 00:33 Blood Pressure 182/109 H 12/25/22 00:33 Pulse Oximetry 96 12/25/22 00:33 Oxygen Delivery Method Room Air 12/25/22 00:33 Medical Decision Making MDM Narrative Medical decision making narrative: patient is an avid cyclist who presents with recent diagnosis of mildly elevated blood pressures. He does have an appointment next month to see his doctor. Patient is also developed some minor bradycardia which is been not causing any symptoms. EKG shows sinus bradycardia mild. Patient has no other s ymptoms and feels well. I believe this to be a case of a sinus bradycardia due to his physical conditioning. I do think that he likely will need antihypertensive and would recommend lisinopril without hydrochlorothiazide as erectile dysfunction is a concern. He again will check his blood pressure 3 times a week with 10 minute rest will follow-up with his doctor next month. Discharge Plan Discharge Clinical Impression: Bradycardia Patient Disposition: Home, Self-Care Condition: Stable Instructions: Bradycardia (ED) Additional Instructions: Check blood pressure 3 times a week continue to monitor symptoms follow-up with her doctor as scheduled. Activity Level: No Restrictions Discharge Diet: Regular Prescriptions: No Action atorvastatin 20 mg tablet 20 mg PO QDAY Qty: 90 3RF Rx Instructions: Take with CoEnzyme Q10 levothyroxine 112 mcg tablet 112 mcg PO QDAY Qty: 30 1RF hydrocodone-acetaminophen 5-325 mg tablet See Rx Instructions PO .COMPLEX PRN (Reason: pain) Qty: 90 0RF Rx Instructions: 0.5-1 orally daily PRN; must last 90 days. No early refills. zolpidem 10 mg tablet 5 - 10 mg PO QHS Qty: 90 0RF Follow Up/Referrals: Lorna London DO [Primary Care Provider] - Stand Alone Forms: [employer] Info Instructions
[2022-12-25 01:10] VITALS: BP 153/95; PULSE 58; RESP 18; O2SAT 95
== END 2022-12-25 01:19 | disposition home or self-care (01) ==
LOC: ED 01:00
PROVIDERS: Emergency Provider Internal Medicine; PCP Family Medicine
DX: R00.1 Bradycardia, unspecified (principal)
CPT/HCPCS: 99282; 99283

== ENCOUNTER 2023-01-20 07:56 | Outpatient (CLI) | payer OTHER, SELFPAY ==
--- OUTSIDE RECORDS SUMMARY | 2023-01-20 08:01 | XMS_ITS | Continuity of Care Document ---
Author Name [employer] Care Team Providers Care Marketing/Sales Person Name Role Phone [employer] Unavailable Unavailable Problems Problem Status Onset Date Classification Date Reported Comments Source Bleeding from nose (finding) 03/27/2022 [facility] Not up-to-date with immunization (finding) 03/27/2022 [facility] Vaccination not done 03/27/2022 [facility] Medications Medication Details Route Status Patient Instructions Ordering Provider Order Date Source acetaminophen-hy drocodone 325 mg-5 mg oral tablet Refills: 0, Maintenance Active [facility] atorvastatin 20 mg oral tablet Refills: 0, Maintenance Active [facility] levothyroxine 137 mcg (0.137 mg) oral tablet Refills: 0, Maintenance Active [facility] zolpidem 10 mg oral tablet Refills: 0, Maintenance Active [facility] Allergies, Adverse Reactions, Alerts Substance Category Reaction Severity Reaction type Status Date Reported Comments Source No Known Medication Allergies Drug Active [facility] Consultation Notes Results Value Date Source Discharge Instructions Document [facility] [address], [place] [id number] ISAIAH INIGUEZ :1960 () Visit Date:03/19/2022 SAFE [...] receive a prescription for pain medicines. In [place], we use the [place] Prescription Drug Monitoring Program called [employer]. In [place] and [place], we use the Prescription Monitoring Program that has oversight by the [place] and [facility] boards of pharmacy. These statewide computer systems track opioid pain medications and other controlled substance prescriptions. If you need help with substance abuse or addiction, please call [phone] ([phone] for confidential referral and treatment. Sponsored by: [employer] [facility] [employer] [place] [facility] [employer] [facility], [facility] Emergency Department Patient Discharge Instructions If [...] medical records and test results from all [facility]. Please sign up in one of [...] was caused by dry mucous membranes, use [id number] saline nasal spray or gel and a [...] provider. Document Revised: 02/14/2020 Document Reviewed: 02/14/2020 [employer] Patient Education ? 2021 [employer] I understand that [facility] is not responsible for any personal belongings/effects [...] Adult Signature: Date/Time: Provider Signature: Date/Time: 03/19/2022 [facility] ED Physician Notes Patient: ISAIAH INIGUEZ (DAVID) [...] Frequency: 1-2 times per month Home/Environment 03/19/2022 [employer] restrictions/concerns: None Living situation: Home/Independent Substance Abuse [...] Measurements 03/19/2022 14:05 MST BSA-pt care 2.09 [place] Body Weight 68.5 kg Weight Method Stated [...] for anemia.. Impression and Plan Epistaxis, recurrent ([id number] R04.0, Discharge, Medical) Plan Condition: Improved, Stable. Disposition: Medically cleared, Discharged: Time 03/19/2022 15:05:00, to home. Follow up with: Primary Care Physician, In: as needed. Counseled: Patient, Regarding diagnosis, Regarding diagnostic results, Regarding treatment plan, Patient indicated understanding of instructions. Electronically Signed By: Jonny Bajwa PAC On 03/19/22 15:05 Co Signature By: Paramjit Abreu DO On 03/23/22 23:47 Modify Signature By: 03/19/2022 [facility] ED Procedure and Supply Charges - Text ED Procedure and Supply Charges Entered On: 03/24/2022 11:00 PST Performed On: 03/19/2022 13:25 MST by Crystal Mckeon ED Other Proc. - Charges Other ED Procedures v2 : CAUTERY PROCEDURE/CONTROL BLEED Crystal Mckeon - 03/24/2022 10:59 PST 03/19/2022 [facility] Vital Signs Vital Sign Value Date Comments Source Temperature Rectal 36.7 03/19/2022 [facility] Systolic (mm Hg) 135 03/19/2022 [facility] Diastolic (mm Hg) 65 03/19/2022 [facility] Respiratory Rate 18 Breaths/Min 03/19/2022 [facility] SPO2 99 03/19/2022 [facility] Heart Rate (bpm) 78 03/19/2022 [facility] Height (cm) 177.8 03/19/2022 [facility] Weight (kg) 88.435 03/19/2022 [facility] BMI 27.97 03/19/2022 [facility] Temperature (c) 36.5 03/19/2022 [facility] Systolic (mm Hg) 145 03/19/2022 [facility] Diastolic (mm Hg) 76 03/19/2022 [facility] Heart Rate (bpm) 81 03/19/2022 [facility] Respiratory Rate 16 Breaths/Min 03/19/2022 [facility] SPO2 97 03/19/2022 [facility] Encounters Location Location Details Encounter Type Encounter Number Reason For Visit Attending Provider ADM Date DC Date Status Source [facility] Emergency [id number] Paramjit Abreu 03/19 [facility] Procedures Procedure Code Date Perfomer Comments Source CONTROL OF NOSEBLEED [id number] 03/19/2022 [facility] NON-COVERED ITEM OR SERV [id number] 03/19/2022 [facility] Social History Social History Date Source Social History TypeResponse Smoking Status Never (less than 100 in lifetime) entered on: 03/19/22 Sex Male [facility] Assessment and Plan Result Assessment and Plan Date Source Assessment and Plan No data available fo r this section 03/19/2022 [facility]
== END 2023-01-20 07:57 | disposition home or self-care (01) ==
LOC: FRMREF 07:57
PROVIDERS: PCP Family Medicine; Visit Provider Family Medicine
DX: Z00.00 Encounter for general adult medical examination without abnormal findings (principal); E78.5 Hyperlipidemia, unspecified; E03.9 Hypothyroidism, unspecified
CPT/HCPCS: 80061; 84439; 84443